=== PATIENT | male | born 1940 | race African-American/Black ===

== ENCOUNTER 2023-08-13 15:02 | Outpatient (AMB) | payer OTHER, SELFPAY ==
--- NOTE | 2023-08-13 15:29 | HO.NEPHOV_ITS ---
HPI HPI Comments History of Present Illness Details I had the delight of seeing Reynaldo , accompanied by his , in follow-up of his chronic kidney disease. He has history of proteinuria. He is diabetic and is on medications. He has hypertension and is on multiple medications including angiotensin receptor aleshia. He has history of MGUS. He denies any chest pain, shortness of breath, proximal nocturnal dyspnea, peripheral arterial symptoms. He does not take nonsteroidal anti-inflammatories on a regular basis. He has no history of prostate cancer. He keeps himself well hydrated and his blood pressure has been well controlled. His serum creatinine has been around 1.3. He has not had any blood work done recently. He feels well. [facility] Medical History (Updated 08/14/23 @ 05:02 by Issac Morgan MD) Type 2 diabetes mellitus Peripheral vascular disease Peripheral neuropathy Pain in toe Onychomycosis Monoclonal gammopathy of unknown significance Mixed hyperlipidemia Family History (Updated 08/13/23 @ 15:27 by Evette Maradiaga MA) Sister Hypertension Diabetes Cancer Brother Hypertension Stroke Social History (Updated 08/13/23 @ 15:27 by Evette Maradiaga MA) Alcohol intake: never Patient Tobacco Use Status: Never used Tobacco Vital Signs 08/13/23 15:34 Height 5 ft 6 in Weight 191 lb BMI 30.8 BP 130/60 Blood Pressure Location Lt brachial Position Sitting Pulse 55 Pulse Source Pulse Oximeter Pulse Oximetry (%) 97 Oxygen Delivery Method Room Air Physical Exam Vital Signs: Last Vital Signs Pulse 55 08/13/23 15:34 BP 130/60 08/13/23 15:34 Pulse Ox 97 08/13/23 15:34 Oxygen Delivery Method Room Air 08/13/23 15:34 BMI result Body Mass Index 30.8 Const General: comfortable and no acute distress Orientation/consciousness: patient oriented x3 HEENT Head: Yes normocephalic Mouth: Normal oral and palatal mucosa present Eyes EOM: EOMs intact bilaterally Neck Neck: Yes supple Resp Auscultation: clear to auscultation bilaterally Cardio Jugular venous distension: no JVD Rate: regular rate GI Palpation (GI): Soft to palpation Auscultation: normal bowel sounds General: Yes no CVA tenderness Back/Spine/Pelvis Back: no CVA tenderness Skin General skin exam: no rashes or lesions noted Neuro General: patient oriented x3 and moves all extremities Extrem General: Yes no pedal edema Assessment & Plan Assessment & Plan (1) CKD (chronic kidney disease) stage 3, GFR 30-59 ml/min: Code(s): N18.30 - Chronic kidney disease, stage 3 unspecified Qualifiers: Chronic kidney disease stage 3 subtype: stage 3a (GFR 45-59) Qualified Code(s): N18.31 - Chronic kidney disease, stage 3a (2) Hypertension: Code(s): I10 - Essential (primary) hypertension Qualifiers: Hypertension type: renovascular hypertension Qualified Code(s): I15.0 - Renovascular hypertension Plan Reynaldo has longstanding diabetes and hypertension. He is on multiple antihypertensive medications. He has renovascular disease. Doppler evaluation done in the past showed borderline elevated resistive indices and velocities in the right possibly due to mild stenosis and or small caliber blood vessels. I shall do a Doppler of his renal arteries with time for follow-up. He is on lipid-lowering medications. His renal functions have been stable. He has no heart failure. His serum potassium is normal. He avoids excessive nonsteroidal anti-inflammatories and maintain good hydration along with a low-sodium diet. 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 He may be a good candidate for SGLT2 inhibitor. I did not make any medication changes today. Follow-up lab work ordered. All questions and concerns were addressed. Follow-up appointment given. Orders: Orders Creatinine 08/13/23 I10 - Essential (primary) hypertension, N18.30 - Chronic kidney disease, stage 3 unspecified Electrolytes 08/13/23 I10 - Essential (primary) hypertension, N18.30 - Chronic kidney disease, stage 3 unspecified Protein Creatinine Ratio, Ur 08/13/23 I10 - Essential (primary) hypertension, N18.30 - Chronic kidney disease, stage 3 unspecified Blood Urea Nitrogen 08/13/23 I10 - Essential (primary) hypertension, N18.30 - Chronic kidney disease, stage 3 unspecified Coding Level of Care Code Est Pt Level 4 (76760) Diagnoses Stage 3a chronic kidney disease N18.31 Chronic kidney disease stage 3 subtype: stage 3a (GFR 45-59) Renovascular hypertension I15.0 Hypertension type: renovascular hypertension Results Reviewed Nephrology Results: No Data to Display
[2023-08-13 15:34] VITALS: BP 130/60; PULSE 55; O2SAT 97; BMI 30.8
== END 2023-08-13 15:58 | disposition home or self-care (01) ==
PROVIDERS: PCP Internal Medicine; Visit Provider Internal Medicine Nephrology
DX: N18.31 Chronic kidney disease, stage 3a (principal); I15.0 Renovascular hypertension
CPT/HCPCS: 99214

== ENCOUNTER → 2023-08-13 15:02 | Outpatient (BNVA) | payer OTHER, MEDICARE, SELFPAY | PROVIDERS: PCP Internal Medicine; Visit Provider Internal Medicine Nephrology ==

== ENCOUNTER 2023-11-11 13:08 | Outpatient (REF) | payer OTHER, SELFPAY ==
[2023-11-11 17:15] LABS: Anion Gap 11 (12-20); Blood Urea Nitrogen 14 mg/dL (9-16); Carbon Dioxide 26 mmol/L (22-29); Chloride 104 mmol/L (96-108); Estimated Glomerular Filt Rate > 60; Sodium 137 mmol/L (135-145)
[2023-11-11 17:45] LABS: Creatinine Urine 18.29 mg/dL; Total Protein Urine Random < 7 mg/dL (<12)
== END 2023-11-11 13:09 | disposition home or self-care (01) ==
LOC: HO.HKASLDS 13:08
PROVIDERS: Visit Provider Internal Medicine Nephrology
DX: I12.9 Hypertensive chronic kidney disease with stage 1 through stage 4 chronic kidney disease, or unspecified chronic kidney disease (principal); N18.30 Chronic kidney disease, stage 3 unspecified
CPT/HCPCS: 36415; 80051; 82565; 82570; 84156; 84520

== ENCOUNTER 2024-02-16 09:31 | Outpatient (AMB) | payer OTHER, SELFPAY ==
[2024-02-16 09:35] VITALS: BP 132/52; PULSE 59; O2SAT 96; BMI 30.8
--- NOTE | 2024-02-16 09:35 | HO.NEPHOV ---
Vital Signs 02/16/24 09:35 Height 5 ft 6 in Weight 191 lb BMI 30.8 BP 132/52 L Blood Pressure Location Lt brachial Position Sitting Pulse 59 Pulse Source Pulse Oximeter Pulse Oximetry (%) 96 Oxygen Delivery Method Room Air Intake Visit Reasons: 6M follow up/ Conf Bottom Cager Required: No Accompanied by: Self / Same As Patient Allergies Equisetum arvense (horsetail) Allergy (Verified 02/16/24 09:38) Unknown HPI Comments Details: I had the delight of seeing Reynaldo in follow-up of his chronic kidney disease. He has history of proteinuria. He is diabetic and is on medications. He has hypertension and is on multiple medications including angiotensin receptor aleshia. He has history of MGUS. He denies any chest pain, shortness of breath, proximal nocturnal dyspnea, peripheral arterial symptoms. He does not take nonsteroidal anti-inflammatories on a regular basis. His last HbA1c was 7.4. He keeps himself well hydrated and his blood pressure has been well controlled. His serum creatinine has been around 1.3. He feels well. [facility]PLAC[facility] BY [facility] Medical History (Updated 08/14/23 @ 05:02 by Issac Morgan MD) Type 2 diabetes mellitus Peripheral vascular disease Peripheral neuropathy Pain in toe Onychomycosis Monoclonal gammopathy of unknown significance Mixed hyperlipidemia Family History Sister Hypertension Diabetes Cancer Brother Hypertension Stroke Social History Alcohol intake: never Patient Tobacco Use Status: Never used Tobacco Physical Exam Vital Signs: Last Vital Signs Pulse 59 02/16/24 09:35 BP 132/52 L 02/16/24 09:35 Pulse Ox 96 02/16/24 09:35 Oxygen Delivery Method Room Air 02/16/24 09:35 BMI result Body Mass Index 30.8 Const General: comfortable and no acute distress Orientation/consciousness: patient oriented x3 HEENT Head: Yes normocephalic Mouth: Normal oral and palatal mucosa present Eyes EOM: EOMs intact bilaterally Neck Neck: Yes supple Resp Auscultation: clear to auscultation bilaterally Cardio Jugular venous distension: no JVD Rate: regular rate GI Palpation (GI): Soft to palpation Auscultation: normal bowel sounds General: Yes no CVA tenderness Back/Spine/Pelvis Back: no CVA tenderness Skin General skin exam: no rashes or lesions noted Neuro General: patient oriented x3 and moves all extremities Extrem General: Yes no pedal edema Results Reviewed Nephrology Results: Sodium 137 mmol/L (135-145) 11/11/23 Potassium 4.0 mmol/L (3.3-5.1) 11/11/23 Chloride 104 mmol/L (96-108) 11/11/23 Carbon Dioxide 26 mmol/L (22-29) 11/11/23 BUN 14 mg/dL (9-16) 11/11/23 Creatinine 1.02 mg/dL (0.5-1.4) 11/11/23 Urine Creatinine 18.29 mg/dL 11/11/23 Protein/Creatinin Ratio TNP 11/11/23 Assessment & Plan Assessment & Plan (1) CKD (chronic kidney disease) stage 3, GFR 30-59 ml/min: Code(s): N18.30 - Chronic kidney disease, stage 3 unspecified Category: Medical Qualifiers: Chronic kidney disease stage 3 subtype: stage 3a (GFR 45-59) Qualified Code(s): N18.31 - Chronic kidney disease, stage 3a (2) Hypertension: Code(s): I10 - Essential (primary) hypertension Category: Medical Qualifiers: Hypertension type: renovascular hypertension Qualified Code(s): I15.0 - Renovascular hypertension Plan Reynaldo has longstanding diabetes and hypertension. He is on multiple antihypertensive medications. He has renovascular disease. Doppler evaluation done in the past showed borderline elevated resistive indices and velocities in the right possibly due to mild stenosis and or small caliber blood vessels. I shall do a Doppler of his renal arteries with time for follow-up. He is on lipid-lowering medications. His renal functions have been stable. He has no heart failure. His serum potassium is normal. He avoids excessive nonsteroidal anti-inflammatories and maintain good hydration along with a low-sodium diet. 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 He may be a good candidate for SGLT2 inhibitor. I did not make any medication changes today. Follow-up lab work ordered. All questions and concerns were addressed. Follow-up appointment given. Orders: Orders Creatinine Today I15.0 - Renovascular hypertension, N18.31 - Chronic kidney disease, stage 3a Electrolytes Today I15.0 - Renovascular hypertension, N18.31 - Chronic kidney disease, stage 3a Blood Urea Nitrogen Today I15.0 - Renovascular hypertension, N18.31 - Chronic kidney disease, stage 3a Coding Level of Care Code Est Pt Level 4 (96778) Diagnoses Stage 3a chronic kidney disease N18.31 Chronic kidney disease stage 3 subtype: stage 3a (GFR 45-59) Renovascular hypertension I15.0 Hypertension type: renovascular hypertension
== END 2024-02-16 09:57 | disposition home or self-care (01) ==
PROVIDERS: PCP Internal Medicine; Visit Provider Internal Medicine Nephrology
DX: N18.31 Chronic kidney disease, stage 3a (principal); I15.0 Renovascular hypertension
CPT/HCPCS: 99214

== ENCOUNTER → 2024-02-16 09:31 | Outpatient (BNVA) | payer OTHER, MEDICARE, SELFPAY | PROVIDERS: PCP Internal Medicine; Visit Provider Internal Medicine Nephrology ==

== ENCOUNTER 2024-09-06 09:53 | Outpatient (AMB) | payer OTHER, MEDICARE, SELFPAY ==
--- NOTE | 2024-09-06 10:31 | HO.NEPHOV ---
Vital Signs 09/06/24 10:33 Height 5 ft 6 in Weight 178 lb 6 oz BMI 28.8 BP 110/60 Blood Pressure Location Lt brachial Position Sitting Pulse 54 Pulse Source Pulse Oximeter Pulse Oximetry (%) 98 Oxygen Delivery Method Room Air Intake Visit Reasons: 6 mon follow up-Conf Technical Sales Representatives Required: No Accompanied by: Spouse Allergies Equjerardotjulian fischer (horsetail) Allergy (Verified 09/06/24 10:33) Unknown HPI Comments Details: Reynaldo was seen in follow-up of his chronic kidney disease. He has history of proteinuria. He is diabetic and is on medications. He has hypertension and is on multiple medications including angiotensin receptor aleshia. He has history of MGUS. He denies any chest pain, shortness of breath, proximal nocturnal dyspnea, peripheral arterial symptoms. He does not take nonsteroidal anti-inflammatories on a regular basis. His last HbA1c was 7.4. He keeps himself well hydrated and his blood pressure has been well controlled. His serum creatinine has been around 1.3. [facility] Medical History (Updated 08/14/23 @ 05:02 by Issac Morgan MD) Type 2 diabetes mellitus Peripheral vascular disease Peripheral neuropathy Pain in toe Onychomycosis Monoclonal gammopathy of unknown significance Mixed hyperlipidemia Family History Sister Hypertension Diabetes Cancer Brother Hypertension Stroke Social History Alcohol intake: never Patient Tobacco Use Status: Never used Tobacco Review of Systems Const All systems reviewed & are unremarkable except as noted in HPI and below Physical Exam Vital Signs: Last Vital Signs Pulse 54 09/06/24 10:33 BP 110/60 09/06/24 10:33 Pulse Ox 98 09/06/24 10:33 Oxygen Delivery Method Room Air 09/06/24 10:33 BMI result Body Mass Index 28.8 Const General: comfortable and no acute distress Orientation/consciousness: patient oriented x3 HEENT Head: Yes normocephalic Mouth: Normal oral and palatal mucosa present Eyes EOM: EOMs intact bilaterally Neck Neck: Yes supple Resp Auscultation: clear to auscultation bilaterally Cardio Jugular venous distension: no JVD Rate: regular rate GI Palpation (GI): Soft to palpation Auscultation: normal bowel sounds General: Yes no CVA tenderness Back/Spine/Pelvis Back: no CVA tenderness Skin General skin exam: no rashes or lesions noted Neuro General: patient oriented x3 and moves all extremities Extrem General: Yes no pedal edema Assessment & Plan Assessment & Plan (1) CKD (chronic kidney disease) stage 3, GFR 30-59 ml/min: Code(s): N18.30 - Chronic kidney disease, stage 3 unspecified Category: Medical Qualifiers: Chronic kidney disease stage 3 subtype: stage 3a (GFR 45-59) Qualified Code(s): N18.31 - Chronic kidney disease, stage 3a (2) Hypertension: Code(s): I10 - Essential (primary) hypertension Category: Medical Qualifiers: Hypertension type: renovascular hypertension Qualified Code(s): I15.0 - Renovascular hypertension Plan Reynaldo has longstanding diabetes and hypertension. He is on multiple antihypertensive medications. He has renovascular disease. Doppler evaluation done in the past showed borderline elevated resistive indices and velocities in the right possibly due to mild stenosis and or small caliber blood vessels. I shall do a Doppler of his renal arteries with time for follow-up. He is on lipid-lowering medications. His renal functions have been stable. He has no heart failure. His serum potassium is normal. He avoids excessive nonsteroidal anti-inflammatories and maintain good hydration along with a low-sodium diet. 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 He may be a good candidate for SGLT2 inhibitor. I did not make any medication changes today. Follow-up lab work ordered. All questions and concerns were addressed. Follow-up appointment given. Orders: Orders Blood Urea Nitrogen 6 Months I15.0 - Renovascular hypertension, N18.31 - Chronic kidney disease, stage 3a Creatinine 6 Months I15.0 - Renovascular hypertension, N18.31 - Chronic kidney disease, stage 3a Electrolytes 6 Months I15.0 - Renovascular hypertension, N18.31 - Chronic kidney disease, stage 3a Coding Level of Care Code Est Pt Level 4 (10435) Diagnoses Stage 3a chronic kidney disease N18.31 Chronic kidney disease stage 3 subtype: stage 3a (GFR 45-59) Renovascular hypertension I15.0 Hypertension type: renovascular hypertension
[2024-09-06 10:33] VITALS: BP 110/60; PULSE 54; O2SAT 98; BMI 28.8
--- OUTSIDE RECORDS SUMMARY | 2024-09-06 10:35 | XMS_ITS | Clinical Summary ---
Author Organization [facility] Address [address] [place] [address] Care Team Providers Care Manager User Interface Name Role Phone Benito Graf MD Primary Care Provider + [phone] Allergies No known active allergies Medications Medication Sig Dispensed Refills Start Date End Date Status albuterol (PROVENTIL) (2.5 MG/3ML) 0.083% nebulizer solution INHALE 1 AMP BY NEBULIZATION ROUTE 4 TIMES EVERY DAY 0 07/28/2022 Active amLODIPine (NORVASC) tablet 10 mg Take 1 tablet (10 mg total) by mouth. 0 Active aspirin 81 MG EC tablet Take 1 tablet (81 mg total) by mouth. 0 Active cetirizine (ZyrTEC) 10 MG tablet Take 1 tablet (10 mg total) by mouth. 0 Active hydroCHLOROthiazide (HYDRODIURIL) tablet 25 mg Take 1 tablet (25 mg total) by mouth. 0 Active losartan (COZAAR) tablet 50 mg Take 1 tablet (50 mg total) by mouth daily. 0 08/14/2022 Active montelukast (SINGULAIR) 10 MG tablet Take 1 tablet (10 mg total) by mouth every evening. 0 08/11/2022 Active metFORMIN (GLUCOPHAGE) tablet 500 mg Take 1 tablet (500 mg total) by mouth. 0 09/21/2021 Active traZODone (DESYREL) 100 MG tablet Take 1 tablet (100 mg total) by mouth. 0 Active valACYclovir (VALTREX) 500 MG tablet Take 1 tablet (500 mg total) by mouth. 0 Active Active Problems Problem Noted Date Diagnosed Date MGUS (monoclonal gammopathy of unknown significa nce) 05/21/2017 Type 2 diabetes mellitus wit hout complication, without long-term current use of insulin 05/21/2017 Essential hypertension 05/21/2017 Mixed hyperlipidemia 05/21/2017 Family History Medical History Relation Name Comments Diabetes Brother Stroke Father Cancer Sister breast Relation Name Status Comments Brother Father Sister Social History Tobacco Use Types Packs/Day Years Used Date Smoking Tobacco: Never Smokeless Tobacco: Never Tobacco Cessation:Counseling Given: Not Answered Alcohol Use Standard Drinks/Week Comments No 0 (1 standard drink = 0.6 oz pur e alcohol) Sex and Gender Information Value Date Recorded Sex Assigned at Not on file Gender Identity Not on file Sexual Orientation Not on file Job Start Date Occupation Industry Not on file Not on file Not on file Last Filed Vital Signs Vital Sign Reading Time Taken Comments Blood Pressure 148/51 09/16/2023 2:29 PM EST Pulse 56 09/16/2023 2:29 PM EST Temperature 36.5 ??C (97.7 ??F) 09/16/2023 2:29 PM ES T Respiratory Rate - - Oxygen Saturation 99% 09/16/2023 2:29 PM EST Inhaled Oxygen Concentration - - Weight 87.2 kg (192 lb 3.2 oz) 09/16/2023 2:29 P M EST Height 165.1 cm (5' 5 ) 09/16/2023 2:29 PM EST Body Mass Index 31.98 09/16/2023 2:29 PM EST Plan of Treatment Health Maintenance Due Date Last Done Comments COVID-19 Vaccine (#1) 12/05/1945 Pneumococcal Vaccine (1 of 2 - PCV) 1948 Depression Screening 1954 Preventative Health Evaluation 1960 DTap / Tdap / Td (1 - Tdap) 1961 Shingrix-Zoster Vaccine (1 of 2) 1961 Fall Risk Assessment 12/05/2007 RSV Adult > 60+ Yrs or Pregn ant (1 - 1-dose 75+ series) 2017 Influenza Vaccine (#1) 2024 05/05/2016 Hepatitis B Vaccines Aged Out No long er eligible based on patient's age to complete this topic RSV Ped < 20 months Aged Out No longe r eligible based on patient's age to complete this topic Care Teams Manager User Interface Relationship Specialty Start Date End Date Benito Graf MD PCP - General Internal Medicine 05/21/17
--- OUTSIDE RECORDS SUMMARY | 2024-09-06 10:35 | XMS_ITS | Clinical Summary ---
Author Organization [address] [facility] Address [address] [place] [address] Phone Care Team Providers Care Commercial Pilot Name Role Phone Benito Graf MD Primary Care Provider + [phone] Allergies No known active allergies Medications Medication Sig Dispensed Refills Start Date End Date Status albuterol 2.5 mg /3 mL (0.083 %) nebulizer solution INHALE 1 AMP BY NEBULIZATION ROUTE 4 TIMES EVERY DAY 07/28/2022 Active amLODIPine (NORVASC) 10 mg tablet Take 1 tablet (10 mg total) by mouth. Active aspirin 81 mg EC tablet Take 1 tablet (81 mg total) by mouth. Active cetirizine (ZyrTEC) 10 mg tablet Take 1 tablet (10 mg total) by mouth. Active hydroCHLOROthiazide (HYDRODIURIL) 25 mg tablet Take 1 tablet (25 mg total) by mouth. Active losartan (COZAAR) 50 mg tablet Take 1 tablet (50 mg total) by mouth daily. 08/14/2022 Active metFORMIN (GLUCOPHAGE) 500 mg tablet Take 1 tablet (500 mg total) by mouth. 09/21/2021 Active montelukast (SINGULAIR) 10 mg tablet Take 1 tablet (10 mg total) by mouth every evening. 08/11/2022 Active traZODone (DESYREL) 100 mg tablet Take 1 tablet (100 mg total) by mouth. Active valACYclovir (VALTREX) 500 mg tablet Take 1 tablet (500 mg total) by mouth. Active MAGNESIUM OXIDE ORAL Take 420 mg by mouth daily. Active CHOLECALCIFEROL, VITAMIN D3, ORAL Take by mouth. Acti ve atenoloL (TENORMIN) 50 mg tablet Take 50 mg by mouth daily. Active latanoprost (XALATAN) 0.005 % ophthalmic solution 1 Drop at bedtime. Active pravastatin (PRAVACHOL) 80 mg tablet Take 80 mg by mouth daily. Active tamsulosin (FLOMAX) 0.4 mg 24 hr capsule Take 0.4 mg by mouth daily. Take 30 mins after same meal every day. Active aspirin ([place]) 81 mg capsule Take by mouth. Active albuterol 2.5 mg /3 mL (0.083 %) nebulizer solution Inhale into the lungs. - Inhalation Active Active Problems Problem Noted Date Diagnosed Date Lumbar stenosis 08/23/2021 Overview (05/20/2024): Last Assessment & Plan: Patient has history of low back pain, difficulty walking distances due to subjective hip weakness; however he had acute severe pain down the right lateral leg starting 07/11/2021, has been doing physical therapy, with time notes the severe right leg pain is improving. He still has some underlying issues with his walking, hip issues. He states prior to this acute flareup of right leg pain, he was doing well enough that he would not consider any surgical interventions for his symptoms. Since he is seeing improvement with time and PT, he will continue physical therapy and call me in 1 to 2 months with an update. If he has persistent or worsening symptoms, I asked that he follow-up in the office. Its not completely clear if his walking issue is related to hip arthritis or lumbar stenosis, his lumbar spine MRI 07/29/2021 at [facility] shows moderate L4-5 stenosis, similar to a prior exam from 11/14/2020, overall mild degenerative changes in the lumbar spine at other levels. We discussed the typical symptoms for lumbar stenosis, including needing to take breaks when walking, worsening of back and leg symptoms with walking; leaning forward on a shopping cart at the grocery store or walking hunched forward for improvement in symptoms while walking. We discussed potential for L4-5 decompression surgery, risks and benefits, postop expectation if he notes these types of symptoms that are worsening with time. He does not wish to try any cortisone injections. We discussed conservative treatment options other than PT as well, we reviewed his MRI lumbar spine on the computer in detail, total time spent 45 minutes. MGUS (monoclonal gammopathy of unknown significa nce) 05/21/2017 Type 2 diabetes mellitus wit hout complication, without long-term current use of insulin 05/21/2017 Mixed hyperlipidemia 05/21/2017 Essential hypertension 05/21/2017 Encounters Date Type Department Care Team Description 07/06/2024 11:00 AM EST Ancillary Procedure [facility] [address] [place] [id number] Heart murmur from Last 3 Months Medical History Medical History Date Comments Hypertension DX:Hypertension GERD (gastroesophageal reflux disease) DX:GERD (gastroesophageal reflux disease) Diabetes mellitus ([facility]/HCC) DX:D iabetes mellitus ([facility]) Family History Medical History Relation Name Comments Diabetes Brother Stroke Father Cancer Sister breast Relation Name Status Comments Brother Father Sister Social History Tobacco Use Types Packs/Day Years Used Date Smoking Tobacco: Never Smokeless Tobacco: Never Alcohol Use Standard Drinks/Week Comments No 0 (1 standard drink = 0.6 oz pur e alcohol) Sex and Gender Information Value Date Recorded Sex Assigned at Not on file Gender Identity Not on file Sexual Orientation Not on file Job Start Date Occupation Industry Not on file Not on file Not on file Obstetrics History Last Filed Vital Signs Vital Sign Reading Time Taken Comments Blood Pressure 149/71 07/06/2024 11:25 AM EST Pulse 56 09/16/2023 2:29 PM EST Temperature - - Respiratory Rate - - Oxygen Saturation - - Inhaled Oxygen Concentration - - Weight 83.9 kg (185 lb) 07/06/2024 11:25 AM EST Height 167.6 cm (5' 6 ) 07/06/2024 11:25 AM EST Body Mass Index 29.86 07/06/2024 11:25 AM EST Plan of Treatment Upcoming Encounters Date Type Department Care Team (Late st Contact Info) Description 09/16/2024 2:45 PM EST Office Visit [facility] Hematology Oncology [address] [place] [address] Ava Sen MD [address] [place] [address] Health Maintenance Due Date Last Done Comments Diabetes: Annual GFR (Glomerular Filtration Rate) 1942 Diabetes: Annual Foot Exam 1952 Diabetes: Annual Retina Eye Exam 1952 RSV Immunization Patients 60+ Years Old (1 - 1-dose 75+ series) 2017 Zoster Vaccines (2 of 2) 01/28/2019 019, 05/03/2015, 01/13/2013 Cholesterol Screening (Lipid Panel) 07/01/2022 Depression Screening 07/01/2022 Falls Risk Assessment 07/01/2022 Medicare Annual Wellness Visit 07/01/2022 Social Influencers of Health Screening 07/01/2022 Diabetes: Annual Urine Albumin-Creatinine Ratio (uACR) 07/31/2022 Diabetes: Blood Sugar Control Test (HGBA1C) 07/31/2022 10/30/2021 Hypertension/CHF/CAD Annual BMP Blood Test 07/31/2022 DTaP,Tdap,and Td Vaccines (2 - Tdap) 08/05/2023 08/05/2013 COVID-19 Vaccine ( - season) 2024 07/11/2021, 10/15/2020, 09/17/2020 Pneumococcal Vaccine: 65+ Years Completed 04/13/2017, 06/03/2015 Influenza Vaccine Completed 04/27/2024, , 06/13/2023, Additional history exists HIB Vaccines Aged Out No longer eligi ble based on patient's age to complete this topic HPV Vaccines Aged Out No longer eligi ble based on patient's age to complete this topic Hepatitis A Vaccines Aged Out No long er eligible based on patient's age to complete this topic Hepatitis B Vaccines Aged Out No long er eligible based on patient's age to complete this topic IPV Vaccines Aged Out No longer eligi ble based on patient's age to complete this topic MMR Vaccines Aged Out No longer eligi ble based on patient's age to complete this topic Meningococcal ACWY Vaccine Aged Out N o longer eligible based on patient's age to complete this topic RSV Immunization Patients Under 20 months Aged Out No longer eligible based on patient's age to complete this topic Varicella Vaccines Aged Out No longer eligible based on patient's age to complete this topic Procedures Procedure Name Priority Date/Time Associated Diagnosis Comments TRANSTHORACIC ECHOCARDIOGRAM (TTE) COMPLETE Routine 07/06/2024 11:26 AM EST Heart murmur from Last 3 Months Results * (ABNORMAL) TRANSTHORACIC ECHOCARDIOGRAM (TTE) COMPLETE (07/06/2024 11:26 AM EST) Left Atrium Minor Conway 5.0 cm CV PACS Left Atrium Major Conway 5.8 cm CV PACS LA Area Sys (A2C) 17 cm2 CV PACS LA Area Sys (A4C) 19 cm2 CV PACS LA Volume (BP) 50 mL CV PACS RA Area 13.5 cm2 CV PACS RA 2D Volume 31 mL CV PACS AV Regurgitation PHT 408 ms CV PACS AR Max Velocity 3.4 m/s CV PACS AV Peak Simon 2.7 m/s CV PACS AV Peak Gradient 29 mmHg CV PACS AV Mean Gradient 15 mmHg CV PACS Ao VTI 55.7 cm CV PACS AV Area Continuity Equation 1.3 cm2 CV PACS AV Area Peak Velocity 1.3 cm2 CV PACS Aortic Sinus Valsalva 3.5 cm CV PACS Ascending Aorta 3.7 cm CV PACS IVC Proximal 1.2 cm CV PACS IVSD 1.0 0.6 - 1.0 cm CV PACS LVIDD 5.0 4.2 - 5.8 cm CV PACS LVIDS 3.6 2.5 - 4.0 cm CV PACS LVOT Diameter 1.9 cm CV PACS LVOT Mean Grad 3 mmHg CV PACS LVOT Peak VTI 26.0 cm CV PACS LVOT Mean Simon 0.8 m/s CV PACS LVOT Peak Simon 1.2 m/s CV PACS LVOT Peak Gradient 6 mmHg CV PACS LVPWD 1.1(A) 0.6 - 1.0 cm CV PACS MV E' Tissue Velocity Lateral 6 cm/s CV PACS MV E' Tissue Velocity Septal 4 cm/s CV PACS LVOT Area 2.8 cm2 CV PACS LVOT Stroke Volume 74 mL CV PACS MV Deceleration Ellis 2.1 m/s2 CV PACS E Wave Deceleration Time 289(A) 119 - 242 ms CV PACS MV PHT 84 ms CV PACS MV Peak A Simon 1.30 m/s CV PACS MV Peak E Simon 1.10 m/s CV PACS MV Mean Gradient 2 mmHg CV PACS MV VTI 47.7 cm CV PACS Mitral Valve Max Velocity 1.4 m/s CV PACS MV Peak Gradient 8 mmHg CV PACS MV Area PHT 1.5 cm2 CV PACS MV Area Continuity Equation 1.5 cm2 CV PACS RV Diastolic Basal Dimension 3.6 2.5 - 4.1 cm CV PACS RV S' 13 cm/s CV PACS TAPSE 19 mm CV PACS TR Peak Velocity 1.90 m/s CV PACS TR Peak Gradient 15 mmHg CV PACS E/E' Ratio Septal 28 CV PACS E/E' Ratio Averaged 23 CV PACS Relative Wall Thickness ratio 0.43(A) 0.24 - 0.42 CV PACS LVOT:AV VTI Index 0.47 CV PACS FS 28 % CV PACS LV Mass 2D 191 96 - 200 g CV PACS MV VTI:LVOT VTI ratio 1.8 CV PACS LVOT flow 227 mL/s CV PACS AV Velocity Ratio 0.44 CV PACS E/A Ratio 0.8 0.8 - 2.0 CV PACS E/E' Ratio Lateral 18 CV PACS BSA 1.98 m2 CV PACS LA Volume Index (BP) 25 mL/m2 CV PACS LVIDD Index 2.59 cm/m2 CV PACS LVIDS Index 1.87 cm/m2 CV PACS LV Mass Index 2D 101 50 - 102 g/m2 CV PACS LVOT Stroke Index 0 mL/m2 CV PACS RA 2D Volume Index 16(A) 18 - 32 mL/m2 CV PACS OLGA Index (VTI) 0.69 cm2/m2 CV PACS OLGA Index (Pk Simon) 0.67 cm2/m2 CV PACS Ascending Aorta Index 1.92 cm/m2 CV PACS Right Ventricular Peak Systolic Pressure 17 mmHg CV PACS Est. RA Pressure 3 mmHg CV PACS LVOT Cardiac Output 0.0 L/min CV PACS LVOT Cardiac Index 2.2 L/min/m2 CV PACS RV Free Wall Peak S' 13 cm/s CV PACS RA Major Conway 5.1 cm CV PACS RA Major Conway Index 2.6 2.1 - 2.7 cm/m2 CV PACS AV Area 2D 1.3 cm2 CV PACS OLGA Index (2D) 0.67 cm2/m2 CV PACS Inferior Vena Cava Diameter At Expiration 1.2 cm CV PACS IVC Expiration Index 0.62 cm/m2 CV PACS AV Area Index 0.6 CV PACS Anatomical Region Laterality Modality Ultrasound Narrative 07/07/2024 12:15 PM EST ?Left ventricle cavity size is normal. Left ventricular systolic function is in the normal range with an ejection fraction of 55-60%. ?No regional LV wall motion abnormalities noted. ?Left ventricle wall thickness is normal. ?Right ventricle cavity is normal. Right ventricular systolic function is normal. ?Aortic valve demonstrates mild stenosis. ?See remainder of the report for additional findings. Left Ventricle Left ventricle cavity size is normal. Wall thickness is normal. Systolic function is normal with an ejection fraction of 55-60%. There are no regional LV wall motion abnormalities. Unable to assess diastolic function. Right Ventricle Right ventricle cavity appears normal. Systolic function is normal. Left Atrium Left atrium volume index is normal. Right Atrium Right atrium cavity is normal. IVC/SVC RA pressures is estimated to be 3 mmHg (IVC diameter <21 mm and decreases >50% during inspiration). Mitral Valve The leaflets are mildly thickened. There is trace regurgitation. There is no evidence of mitral valve stenosis. Tricuspid Valve The leaflets exhibit normal excursion. There is trace regurgitation. There is no evidence of tricuspid valve stenosis. The RVSP is estimated at 17 mmHg. Aortic Valve The aortic valve was not well visualized. The leaflets are calcified. There is mild regurgitation. There is mild stenosis. Pulmonic Valve The pulmonic valve was not well visualized. There is trace pulmonic valve regurgitation. Ascending Aorta The aorta appears normal in size. Pericardium Pericardium appears normal. There is no pericardial effusion. Study Details Overall the study quality was adequate. 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 Health Care Decision (hx) 05/21/2017 AD ROJAS DIRECTIVE Health Care Decision (hx) 05/21/2017 AD ROJAS DIRECTIVE Health Care Decision (hx) 05/21/2017 AD ROJAS DIRECTIVE Health Care Decision (hx) 05/21/2017 AD ROJAS DIRECTIVE Health Care Decision (hx) 05/21/2017 AD ROJAS DIRECTIVE Health Care Decision (hx) 05/21/2017 AD ROJAS DIRECTIVE Health Care Decision (hx) 05/21/2017 AD ROJAS DIRECTIVE Health Care Decision (hx) 05/21/2017 AD ROJAS DIRECTIVE Health Care Decision (hx) 05/21/2017 AD ROJAS DIRECTIVE Health Care Decision (hx) 05/21/2017 AD ROJAS DIRECTIVE Health Care Decision (hx) 05/21/2017 AD ROJAS DIRECTIVE Health Care Decision (hx) 05/21/2017 AD ROJAS DIRECTIVE Health Care Decision (hx) 05/21/2017 AD ROJAS DIRECTIVE Health Care Decision (hx) 05/21/2017 AD ROJAS DIRECTIVE Health Care Decision (hx) 05/21/2017 AD ROJAS DIRECTIVE Health Care Decision (hx) 05/21/2017 AD ROJAS DIRECTIVE Health Care Decision (hx) 05/21/2017 AD ROJAS DIRECTIVE Care Teams Commercial Pilot Relationship Specialty Start Date End Date Benito Graf MD [address] [place] [address] PCP - General Internal Medicine 07/06/24
--- OUTSIDE RECORDS SUMMARY | 2024-09-06 10:35 | XMS_ITS | Clinical Summary ---
Author Organization [facility] Address [address] [facility] [address] [place] [address] Phone Care Team Providers Care Cement Tile Maker Name Role Phone Benito Graf MD Primary Care Provider + [phone] Allergies Active Allergy Reactions Criticality Noted Date Comments Equisetum 09/26/2021 Medications albuterol (2.5 MG/3ML) 0.083% nebulizer solution INHALE 1 AMP BY NEBULIZATION ROUTE 4 TIMES EVERY DAY 2 Active losartan (COZAAR) 50 MG tablet Take 50 mg by mouth 1 (one) time each day 2 Active metFORMIN (GLUCOPHAGE) 500 MG tablet Take 1 tablet by mouth in the morning and 1 tablet in the evening. 2 Active hydroCHLOROthia zide 25 MG tablet Take 25 mg by mouth 1 (one) time each day Active atenolol (TENORMIN) 50 MG tablet Take 50 mg by mouth 1 (one) time each day Active amLODIPine (NORVASC) 10 MG tablet Take 10 mg by mouth 1 (one) time each day Active aspirin (ST [place]) 81 MG EC tablet Take 81 mg by mouth 1 (one) time each day Active pravastatin (PRAVACHOL) 80 MG tablet Take 80 mg by mouth 1 (one) time each day Active tamsulosin (FLOMAX) 0.4 MG 24 hr capsule Take 0.4 mg by mouth 1 (one) time each day Active cholecalciferol (VITAMIN D-3) 25 MCG (1000 UT) capsule Take 1,000 Units by mouth 1 (one) time each day Active cetirizine (ZyrTEC) 10 MG tablet Take 10 mg by mouth 1 (one) time each day Active Magnesium Oxide 420 MG tablet Take 1 tablet by mouth 1 (one) time each day Active latanoprost (XALATAN) 0.005 % ophthalmic solution 1 drop every night Active traZODone (DESYREL) 100 MG tablet Take 100 mg by mouth if needed for sleep Active valACYclovir (VALTREX) 500 MG tablet Take 500 mg by mouth if needed Active sildenafil (VIAGRA) 100 MG tablet Take 100 mg by mouth if needed for erectile dysfunction Active montelukast (SINGULAIR) 10 MG tablet Take 1 tablet by mouth in the morning. 3 Active Active Problems Problem Noted Date Diagnosed Date Chronic kidney disease 09/26/2021 Stage 3a chronic kidney disease 09/26/2021 Hypertension 09/26/2021 Essential hypertension 05/21/2017 Resolved Problems Problem Noted Date Diagnosed Date Resolved Date Mixed hyperlipidemia 05/21/2017 022 Monoclonal gammopathy of unc ertain significance 05/21/2017 09/26/2021 Paronychia 10/30/2016 09/26/2021 Pain in toe 09/25/2016 09/26/2021 Onychomycosis 06/20/2016 09/26/2021 Peripheral neuropathy 06/20/20162021 Peripheral vascular disease 06/20/2016 09/26/2021 Type 2 diabetes mellitus 06/20/2016 Immunizations Name Administration Dates Next Due Influenza, Quadrivalent, With Preservative 05/05 Family History Medical History Relation Comments Hypertension Brother Stroke Brother Cancer Sister Diabetes Sister Hypertension Sister Relation Status Comments Brother Father Mother Sister Social History Tobacco Use Types Packs/Day Years Used Date Smoking Tobacco: Never Smokeless Tobacco: Never Tobacco Cessation:Counseling Given: Not Answered Alcohol Use Standard Drinks/Week Comments Never 0 (1 standard drink = 0.6 oz pur e alcohol) Sex and Gender Information Value Date Recorded Sex Assigned at Not on file Legal Sex Male 9:14 AM EST Gender Identity Not on file Sexual Orientation Not on file Last Filed Vital Signs Vital Sign Reading Time Taken Comments Blood Pressure 130/70 08/14/2022 4:33 PM EST Pulse 63 08/14/2022 4:33 PM EST Temperature - - Respiratory Rate - - Oxygen Saturation - - Inhaled Oxygen Concentration - - Weight 88.9 kg (196 lb) 08/14/2022 4:33 PM EST Height - - Body Mass Index - - Plan of Treatment Health Maintenance Due Date Last Done Comments Diabetes: Hemoglobin A1C 06/04/2023 10/30/2021, 05/04 Diabetes: Pedal Pulse Checked 06/04/2023 Diabetes: Sensory Foot Exam 06/04/2023 Diabetes: Visual Foot Exam 06/04/2023 Influenza Vaccine (#1) 2024 , 06/03/2021, 05/03/2020, Additional history exists Diabetes: Ophthalmology Exam 05/25/2024, 10/22/2022, 04/23/2022 Pneumococcal Vaccine: 65+ Years Completed 04/13/2017, 06/03/2015 Hepatitis B Vaccine Aged Out No longe r eligible based on patient's age to complete this topic Procedures Procedure Name Priority Date/Time Associated Diagnosis Comments HEMOGLOBIN A1C Routine 10/30/2021 8:06 AM EDT Hypertension Stage 3a chronic kidney disease (HCC) from Last 3 Months or Most Recently Relevant to Health Maintenance Results * (ABNORMAL) Hemoglobin A1c (10/30/2021 8:06 AM EDT) Hemoglobin A1C 6.3(H) (4.0-5.6) % [facility] Comment: MONITORING: In known diabetic patients, hemoglobin A1c targets should be discussed with health care provider. DIAGNOSTIC USE: ??The [place] Diabetes Association (ADA) and the World Health Organization (WHO) recommend the use of HbA1c to diagnose diabetes using a threshold of 6.5%. Patients who have an HbA1c between 5.7% and 6.4% are considered at increased risk for developing diabetes in the future. CAUTION: Falsely low HbA1c results may be observed in patients with hemolytic anemia, homozygous forms of abnormal hemoglobin (e.g. SS, CC, SC), , recent blood loss or hemoglobin F greater than 7%. Fructosamine may be used as an alternate test in these cases. REFERENCE: ADA: Standards of Medical Care in Diabetes 2020, The Journal of Clinical and Applied Research and Education Volume 43, Supplement 1 Testing performed or reported by [facility], a Service of [facility], [address] [place], [place] [id number] Selena Turner MD, Tube And Rod Straightener [facility]# [id number] Blood (Blood, Venous) 10/30/2021 8:06 AM EDT 10/30/2021 8:07 AM EDT us Issac Morgan MD LAB BLOOD ORDERABLES Final Resul t [facility] [employer] from Last 3 Months or Most Recently Relevant to Health Maintenance Insurance [employer] Care Teams Cement Tile Maker Relationship Specialty Start Date End Date Benito Graf MD [address] [place], [place] [address] [address] PCP - General Internal Medicine 08/07/21
== END 2024-09-06 10:52 | disposition home or self-care (01) ==
PROVIDERS: PCP Internal Medicine; Visit Provider Internal Medicine Nephrology
DX: I12.9 Hypertensive chronic kidney disease with stage 1 through stage 4 chronic kidney disease, or unspecified chronic kidney disease (principal); E11.22 Type 2 diabetes mellitus with diabetic chronic kidney disease; N18.31 Chronic kidney disease, stage 3a
CPT/HCPCS: 99214

== ENCOUNTER 2024-09-06 09:53 | Outpatient (REF) | payer OTHER, MEDICARE, SELFPAY ==
[2024-09-06 18:26] LABS: Anion Gap 17 (12-20); Blood Urea Nitrogen 20 mg/dL (9-16); Carbon Dioxide 24 mmol/L (22-29); Chloride 101 mmol/L (96-108); Estimated Glomerular Filt Rate 44; Potassium 4.1 mmol/L (3.3-5.1); Sodium 138 mmol/L (135-145)
== END 2024-09-06 09:54 | disposition home or self-care (01) ==
LOC: HO.HKASLDS 09:53
PROVIDERS: PCP Internal Medicine; Visit Provider Internal Medicine Nephrology
DX: I15.0 Renovascular hypertension (principal); N18.31 Chronic kidney disease, stage 3a
CPT/HCPCS: 36415; 80051; 82565; 84520

== ENCOUNTER 2025-04-05 09:16 | Outpatient (REF) | payer OTHER, SELFPAY ==
--- OUTSIDE RECORDS SUMMARY | 2025-04-05 09:59 | XMS_ITS | Clinical Summary ---
Author Organization [facility] Address [address] [place] [address] Phone Care Team Providers Care Upper Cutter Out Name Role Phone Benito Graf MD Primary Care Provider + [phone] Allergies No known active allergies Medications amLODIPine (NORVASC) 10 mg tablet Take 1 tablet (10 mg total) by mouth. Active aspirin 81 mg EC tablet Take 1 tablet (81 mg total) by mouth. Active cetirizine (ZyrTEC) 10 mg tablet Take 1 tablet (10 mg total) by mouth. Active hydroCHLOROthia zide (HYDRODIURIL) 25 mg tablet Take 1 tablet (25 mg total) by mouth. Active losartan (COZAAR) 50 mg tablet Take 1 tablet (50 mg total) by mouth daily. 3 Active metFORMIN (GLUCOPHAGE) 500 mg tablet Take 1 tablet (500 mg total) by mouth. 2 Active traZODone (DESYREL) 100 mg tablet Take 1 tablet (100 mg total) by mouth. Active valACYclovir (VALTREX) 500 mg tablet Take 1 tablet (500 mg total) by mouth. Active MAGNESIUM OXIDE ORAL Take 420 mg by mouth daily. Active CHOLECALCIFEROL , VITAMIN D3, ORAL Take by mouth. Activ e atenoloL (TENORMIN) 50 mg tablet Take 50 [...] (Vazalore) 81 mg capsule Take by mouth. Acti ve Jardiance 10 mg tablet Take 1 tablet (10 mg total) by mouth 1 (one) time each day. for 30 days 5 Active montelukast (SINGULAIR) 10 mg tablet Take 1 tablet (10 mg total) by mouth at bedtime. 90 tablet 3 5 Active albuterol 2.5 mg /3 mL (0.083 %) nebulizer solution Take 3 mL (2.5 mg total) by nebulization 4 (four) times a day. 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, similar to [...] complication, without long-term current use of insulin ([facility] V24, [facility] V28) 05/21/2017 Mixed hyperlipidemia 05/21/2017 Essential hypertension 05/21/2017 Encounters Date Type Department Care Team Description 01/17/2025 1:15 PM EDT Office Visit Pulmonolgy - [address] [place] [address] Makayla Morocho MD Bronchiectasis without acute exacerbation ([facility] V24, [facility] V28) (Primary Dx); Obesity (BMI 30-39.9); Non-seasonal allergic rhinitis due to pollen from Last 3 Months Medical History Medical History Date Comments Hypertension DX:Hypertension GERD (gastroesophageal reflux disease) DX:GERD (gastroesophageal reflux disease) Diabetes mellitus ([facility] V 24, [facility] V28) DX:Diabetes mellitus ([facility]) Family History Medical History Relation Name Comments Diabetes Brother Stroke Father Cancer Sister breast Relation Name Status Comments Brother Father Sister Social History Tobacco Use Types Packs/Day Years Used Date Smoking Tobacco: Never Passive Smoke Exposure: Never Smokeless Tobacco: Never Tobacco Cessation:Counseling Given: Not Answered Alcohol Use Standard Drinks/Week Comments No 0 (1 standard drink = 0.6 oz pur e alcohol) Sex and Gender Information Value Date Recorded Sex Assigned at Male 11/17/2024 2:07 PM EDT Legal Sex Male 12:07 PM EST Gender Identity Male 11/17/2024 2:07 PM EDT Sexual Orientation Choose not to disclose 2024 2:07 PM EDT Obstetrics History Last Filed Vital Signs Vital Sign Reading Time Taken Comments Blood Pressure 110/52 01/17/2025 1:25 PM EDT Pulse 61 01/17/2025 1:25 PM EDT Temperature 36.1 C (97 F) 01/17/2025 1:25 PM EDT Respiratory Rate 17 01/17/2025 1:25 PM EDT Oxygen Saturation 98% 01/17/2025 1:25 PM EDT Inhaled Oxygen Concentration - - Weight 82.2 kg (181 lb 3.2 oz) 01/17/2025 1:25 P M EDT Height 167.6 cm (5' 6 ) 01/17/2025 1:25 PM EDT Body Mass Index 29.25 01/17/2025 1:25 PM EDT Plan of Treatment Upcoming Encounters Date Type Department Care Team (Late st Contact Info) Description 07/19/2025 9:30 AM EST Ancillary Procedure [facility] [address] [facility] [address] [place] [phone] 07/19/2025 11:15 AM EST Office Visit [facility] [address] [facility] [address] [place] [phone] Makayla Morocho MD [address] [place] [address] 09/18/2025 2:45 PM EST Office Visit [facility] Hematology Oncology [address] [place] [phone] Ava Sen MD [address] [place] [address] Health Maintenance Due Date Last Done Comments Diabetes: Annual Foot Exam 1950 Diabetes: Annual Retina Eye Exam 1950 Hepatitis A Vaccines (1 of 2 - Risk 2-dose series) 1961 RSV Immunization Adult Patients (1 - 1-dose 75+ series) 2017 Zoster Vaccines (2 of 2) 01/28/2019 019, 05/03/2015, 01/13/2013 Cholesterol Screening (Lipid Panel) 07/01/2022 Falls Risk Assessment 07/01/2022 Medicare Annual Wellness Visit 07/01/2022 Social Influencers of Health Screening 07/01/2022 Diabetes: Annual Urine Albumin-Creatinine Ratio (uACR) 07/31/2022 Diabetes: Blood Sugar Control Test (HGBA1C) 07/31/2022 10/30/2021 DTaP,Tdap,and Td Vaccines (2 - Tdap) 08/05/2023 08/05/2013 COVID-19 Vaccine ( season) 2024 07/11/2021, 10/15/2020, 09/17/2020 Depression Screening 08/03/2024 Influenza Vaccine (#1) 2025 , 04/27/2024, 06/30/2023, Additional history exists Diabetes: Annual GFR (Glomerular Filtration Rate) 09/16/2025 09/16/2024 Hypertension/CHF/CAD Annual BMP Blood Test 09/16/2025 09/16/2024 Pneumococcal Vaccine: 50+ Years Completed 04/13/2017, 06/03/2015 HIB Vaccines Aged Out No longer eligi [...] patient's age to complete this topic Meningococcal B Vaccine Aged Out No l onger eligible based on patient's age to complete this topic RSV Immunization Patients Under 20 months Aged Out No longer eligible based on patient's age to complete this topic Varicella Vaccines Aged Out No longer eligible based on patient's age to complete this topic Procedures Procedure Name Priority Date/Time Associated Diagnosis Comments COMPREHENSIVE METABOLIC PANEL Routine 09/16/2024 3:15 PM EST MGUS (monoclonal gammopathy of unknown significance) from Last 3 Months or Most Recently Relevant to Health Maintenance Results * (ABNORMAL) Comprehensive metabolic panel (09/16/2024 3:15 PM EST) Sodium 136 133 - 145 mmol/L LAB CHEMISTRY METHOD 09/16/2024 4:52 PM EST [facility] Potassium 3.7 3.5 - 5.5 mmol/L LAB CHEMISTRY METHOD 09/16/2024 4:52 PM EST [facility] Chloride 105 96 - 110 mmol/L LAB CHEMISTRY METHOD 09/16/2024 4:52 PM EST [facility] CO2 25 21 - 32 mmol/L LAB CHEMISTRY METHOD 09/16/2024 4:52 PM [facility] Anion Gap 6 3 - 11 LAB CHEMISTRY METHOD 09/16/2024 4:52 PM [facility] Glucose 254(H) 70 - 100 mg/dL LAB CHEMISTRY METHOD 09/16/2024 4:52 PM [facility] BUN 20 5 - 25 mg/dL LAB CHEMISTRY METHOD 09/16/2024 4:52 PM [facility] Creatinine 1.67(H) 0.70 - 1.30 mg/dL LAB CHEMISTRY METHOD 09/16/2024 4:52 PM [facility] eGFR 41(L) >=60 mL/min/1. 73m2 LAB CHEMISTRY METHOD 09/16/2024 4:52 PM [facility] Comment:Calculation based on the Chronic Kidney Disease Epidemiology Collaboration (CKD-EPI) equation refit without adjustment for race. BUN/Creatinine Ratio 12.0 LAB CHEMISTRY METHOD 09/16/2024 4:52 PM [facility] Calcium 9.6 8.5 - 10.5 mg/dL LAB CHEMISTRY METHOD 09/16/2024 4:52 PM [facility] AST (SGOT) 19 10 - 42 unit/L LAB CHEMISTRY METHOD 09/16/2024 4:52 PM [facility] ALT (SGPT) 23 10 - 60 unit/L LAB CHEMISTRY METHOD 09/16/2024 4:52 PM [facility] Alkaline Phosphatase 82 42 - 121 unit/L LAB CHEMISTRY METHOD 09/16/2024 4:52 PM [facility] Total Protein 6.9 6.0 - 8.0 g/dL LAB CHEMISTRY METHOD 09/16/2024 4:52 PM [facility] Albumin 3.7 3.2 - 5.0 g/dL LAB CHEMISTRY METHOD 09/16/2024 4:52 PM [facility] Total Bilirubin 0.4 0.0 - 1.4 mg/dL LAB CHEMISTRY METHOD 09/16/2024 4:52 PM EST [facility] Blood Venous blood specimen / Unknown Venipuncture / Unknown 09/16/2024 3:15 PM EST 09/16/2024 4:28 PM EST us Ava Sen MD LAB BLOOD ORDERABLE S Final Result [facility] [address] [place] [address], from Last 3 Months or Most Recently Relevant to Health Maintenance Insurance [employer] Advance Directives Documents on File Type Date Recorded Patient Emergency Medical Technician/Driver Expl anation Health Care Decision (hx) 05/21/2017 [...] (hx) 05/21/2017 AD ROJAS DIRECTIVE Care Teams Upper Cutter Out Relationship Specialty Start Date End Date Benito Graf MD [address] [place] [address] PCP - General Internal Medicine 07/06/24
--- OUTSIDE RECORDS SUMMARY | 2025-04-05 09:59 | XMS_ITS | Clinical Summary ---
Author Organization [facility] Address [address] [place] [address] Care Team Providers Care Surgical Rn Name Role Phone Benito Graf MD Primary Care Provider + [phone] Allergies No known active allergies Medications Medication [...] 56 09/16/2023 2:29 PM EST Temperature 36.5 C (97.7 F) 09/16/2023 2:29 PM EST Respiratory Rate - - Oxygen Saturation 99% [...] 1-dose 75+ series) 2017 Influenza Vaccine (#1) 2025 05/05/2016 Hepatitis B Vaccines Aged Out No long er eligible based on patient's age to complete this topic RSV Ped < 20 months Aged Out No longe r eligible based on patient's age to complete this topic Care Teams Surgical Rn Relationship Specialty Start Date End Date Benito Graf MD PCP - General Internal Medicine 05/21/17
--- OUTSIDE RECORDS SUMMARY | 2025-04-05 09:59 | XMS_ITS | Clinical Summary ---
Author Organization [facility] Address [address] [facility] [address] [place] [address] Phone Care Team Providers Care Tower Observer Name Role Phone Benito Graf MD Primary Care Provider + [phone] Allergies Active Allergy Reactions Criticality Noted Date [...] 09/26/2021 Type 2 diabetes mellitus 06/20/2016 Immunizations Immunization Administration Dates Next Due Influenza, Quadrivalent, With [...] Visual Foot Exam 06/04/2023 Influenza Vaccine (#1) 2025 , 06/13/2023, 04/03/2022, Additional history exists Diabetes: Ophthalmology Exam 08/17/2025, 12/21/2023, 05/25/2023 Pneumococcal Vaccine: 50+ Years Completed 04/13/2017, 06/03/2015 Hepatitis B Vaccine [...] AM EDT) Hemoglobin A1C 6.3(H) (4.0-5.6) % [facility] Comment: MONITORING: In known diabetic patients, hemoglobin A1c targets should be discussed with health care provider. DIAGNOSTIC USE: The [place] Diabetes Association (ADA) and the World Health [...] Supplement 1 Testing performed or reported by [facility], a Service of [facility], [address] [place] [address] Selena Turner MD, Manager Paper [facility]# [id number] Blood specimen (specimen) Venous blood / Unknown 10/30/2021 8:06 AM EDT 10/30/2021 8:07 AM EDT Issac Morgan MD LAB BLOOD ORDERABLES Final Resul t [facility] from Last 3 Months or Most Recently Relevant to Health Maintenance Insurance [employer] Care Teams Tower Observer Relationship Specialty Start Date End Date Benito Graf MD [address] [place] [address] PCP - General Internal Medicine 08/07/21
--- OUTSIDE RECORDS SUMMARY | 2025-04-05 09:59 | XMS_ITS ---
Continuity of Care Document (CCD) Created on: April 05, 2025 Reynaldo Nuñez External Reference #: [id number] : 1940 Sex: Male Author Organization [facility] [address] [facility] [address] [place] [address] Phone [phone] Care Team Providers Care Tortilla Maker Name Role Phone Benito Graf M.D. Care Team Information Recei trinity [phone] Problems Active Problems Provider Date Essential hypertension Aly Cameron M.D. O nset: 11/13/2022 Type 2 diabetes mellitus Aly Cameron M.D. Onset: 11/13/2022 Multinodular goiter Aly Cameron M.D. 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 Onset: 11/13/2022 Social History Type Date Description Comments Sex Male Sex Unknown Tobacco Use Start: Unknown Never Smoked Cigarettes ETOH Use Occasionally consumes alcoho l Allergies and adverse reactions Description No Known Drug Allergies Medications Active Medications SIG Qnty Indications Order ing Provider Date Metformin [id number] Tablets take 1 tablet by mouth twice a day Aly Cameron M.D. 11/13/2022 Albuterol Sulfate(2.5mg/3ML) 0.083% Nebulizer Inhale 1 Amp By Nebulization Route 4 Times Every Day Makayla Morocho MD Onetouch VerioStrips Twice A Day Benito Molina M.D. Losartan [id number] Tablets Take 1 Tablet By Mouth Every Day Benito Graf M.D. Montelukast Syeizm31jl Tablets Take 1 Tablet By Mouth Every Day In The Evening Makayla Morocho MD Hydrochlorothiazide2 5mg Tablets 1 by mouth every day 90tabs Aly Cameron M.D. Kmrudkdm45np Tablets 1 by mouth every day Aly Cameron M.D. Amlodipine Ozxwaowa15ig Tablets 1 by mouth every day Aly Cameron M.D. Pravastatin Ovmxeo56xo Tablets 1 by mouth every day Aly Cameron M.D. Tamsulosin HCL0.4mg Capsules 1 cap by mouth every night 90caps Aly Cameron M.D. Trazodone BYR852pl Tablets 1 tab by mouth at bedtime as needed Aly Cameron M.D. Valacyclovir VTK150nv Tablets take 1 tablet by mouth daily as needed 90tabs Aly Cameron M.D. Sildenafil Ladxzqk826wk Tablets take 1 tablet by mouth once daily if needed 6tabs Aly Cameron M.D. Vital Signs Date Vital Result Comment 11/17/2024 8:23am BP Systolic 130 mmHg BP Diastolic 80 mmHg Heart Rate 72 /min Height 65 inches 5'5 Weight 184.00 lb BMI (Body Mass Index) 30.6 kg/m2 Results Test Acquired Date Facility Test Result H/L Range N ote TSH Rfx on Abnormal to Free T4 11/17/2024 [facility] TSH Rfx on Abnormal to Free T4 1.980 uIU/mL 0.450-4.500 TSH Rfx on Abnormal to Free T4 11/16/2023 [facility] TSH Rfx on Abnormal to Free T4 1.920 uIU/mL 0.450-4.500 Medical Devices Description No Information Available Encounters Type Date Location Provider Dx Diagnosis Office Visit 11/17/2024 8:30a Main Office Aly Cameron M.D. E04.2 Nontoxic multinodular goiter Assessments Date Code Description Provider 11/17/2024 E04.2 Multinodular goiter Aly Liao M.D. Plan of Treatment Future Appointment(s):* 11/20/2025 8:30 am - Aly Cameron M.D. at Main Office 11/16/2023 - Aly Cameron M.D.* E04.2 Multinodular goiter* New Xrays:* Ultrasound Thyroid, Scheduled: 11/24/23 Functional Status Description No Information Available Mental Status Description No Information Available Referrals Refer to Dr Reason for Referral Status Appt Barry e Aly Cameron M.D. Created [address] [place] [address] Drive [address] [place] [address] [phone] Aly Cameron M.D. Created [address] [place] [address] Drive [address] [place] [address] [phone]
[2025-04-05 13:31] LABS: Anion Gap 12 (12-20); Blood Urea Nitrogen 19 mg/dL (9-16); Carbon Dioxide 26 mmol/L (22-29); Chloride 107 mmol/L (96-108); Estimated Glomerular Filt Rate 51; Potassium 4.1 mmol/L (3.3-5.1); Sodium 141 mmol/L (135-145)
== END 2025-04-05 09:17 | disposition home or self-care (01) ==
LOC: HO.HKASLDS 09:16
PROVIDERS: Visit Provider Internal Medicine Nephrology
DX: N18.31 Chronic kidney disease, stage 3a (principal); I15.0 Renovascular hypertension
CPT/HCPCS: 36415; 80051; 82565; 84520

== ENCOUNTER 2025-04-06 13:49 | Outpatient (AMB) | payer OTHER, MEDICARE, SELFPAY ==
--- NOTE | 2025-04-06 14:01 | HO.NEPHOV ---
Vital Signs 04/06/25 14:05 Height 5 ft 6 in Weight 182 lb 4 oz BMI 29.4 BP 120/60 Blood Pressure Location Lt brachial Position Sitting Pulse 63 Pulse Source Pulse Oximeter Pulse Oximetry (%) 98 Oxygen Delivery Method Room Air Intake Visit Reasons: Follow up 6mo-Conf Engineering Patternmaker Required: No Accompanied by: Spouse Allergies Equjerardotjulian fischer (horsetail) Allergy (Verified 04/06/25 14:04) Unknown HPI Comments Details: Reynaldo was seen in follow-up of his chronic kidney disease. He has history of proteinuria. He is diabetic and is on medications. He has hypertension and is on multiple medications including angiotensin receptor aleshia. He has history of MGUS. He denies any chest pain, shortness of breath, proximal nocturnal dyspnea, peripheral arterial symptoms. He does not take nonsteroidal anti-inflammatories on a regular basis. His last HbA1c has improved. He keeps himself well hydrated and his blood pressure has been well controlled. His serum creatinine has been around 1.3 PFSH Medical History (Updated 08/14/23 @ 05:02 by Issac Morgan MD) Type 2 diabetes mellitus Peripheral vascular disease Peripheral neuropathy Pain in toe Onychomycosis Monoclonal gammopathy of unknown significance Mixed hyperlipidemia Family History Sister Hypertension Diabetes Cancer Brother Hypertension Stroke Social History Alcohol intake: never Patient Tobacco Use Status: Never used Tobacco Review of Systems Const All systems reviewed & are unremarkable except as noted in HPI and below Physical Exam Vital Signs: Last Vital Signs Pulse 63 04/06/25 14:05 BP 120/60 04/06/25 14:05 Pulse Ox 98 04/06/25 14:05 Oxygen Delivery Method Room Air 04/06/25 14:05 BMI result Body Mass Index 29.4 Const General: comfortable and no acute distress Orientation/consciousness: patient oriented x3 HEENT Head: Yes normocephalic Mouth: Normal oral and palatal mucosa present Eyes EOM: EOMs intact bilaterally Neck Neck: Yes supple Resp Auscultation: clear to auscultation bilaterally Cardio Jugular venous distension: no JVD Rate: regular rate GI Palpation (GI): Soft to palpation Auscultation: normal bowel sounds General: Yes no CVA tenderness Back/Spine/Pelvis Back: no CVA tenderness Skin General skin exam: no rashes or lesions noted Neuro General: patient oriented x3 and moves all extremities Extrem General: Yes no pedal edema Results Reviewed Nephrology Results: Sodium, (135-145) 141 mmol/L 04/05/25 Potassium, (3.3-5.1) 4.1 mmol/L 04/05/25 Chloride, (96-108) 107 mmol/L 04/05/25 Carbon Dioxide, (22-29) 26 mmol/L 04/05/25 BUN, (9-16) 19 mg/dL H 04/05/25 Creatinine, (0.5-1.4) 1.33 mg/dL 04/05/25 Urine Creatinine 18.29 mg/dL 11/11/23 Protein/Creatinin Ratio TNP 11/11/23 Assessment & Plan Assessment & Plan (1) CKD (chronic kidney disease) stage 3, GFR 30-59 ml/min: Code(s): N18.30 - Chronic kidney disease, stage 3 unspecified Category: Medical Qualifiers: Chronic kidney disease stage 3 subtype: stage 3a (GFR 45-59) Qualified Code(s): N18.31 - Chronic kidney disease, stage 3a (2) Hypertension: Code(s): I10 - Essential (primary) hypertension Category: Medical Qualifiers: Hypertension type: renovascular hypertension Qualified Code(s): I15.0 - Renovascular hypertension Plan Reynaldo has longstanding diabetes and hypertension. He is on multiple antihypertensive medications. He has renovascular disease. Doppler evaluation done in the past showed borderline elevated resistive indices and velocities in the right possibly due to mild stenosis and or small caliber blood vessels. I shall do a Doppler of his renal arteries with time for follow-up. He is on lipid-lowering medications. His renal functions have been stable. He has no heart failure. His serum potassium is normal. He avoids excessive nonsteroidal anti-inflammatories and maintain good hydration along with a low-sodium diet. 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 He is on SGLT2 inhibitor. I did not make any medication changes today. Follow-up lab work ordered. All questions and concerns were addressed. Follow-up appointment given Orders: Orders Electrolytes 6 Months I15.0 - Renovascular hypertension, N18.31 - Chronic kidney disease, stage 3a Blood Urea Nitrogen 6 Months I15.0 - Renovascular hypertension, N18.31 - Chronic kidney disease, stage 3a Creatinine 6 Months I15.0 - Renovascular hypertension, N18.31 - Chronic kidney disease, stage 3a Protein Creatinine Ratio, Ur 6 Months I15.0 - Renovascular hypertension, N18.31 - Chronic kidney disease, stage 3a Coding Level of Care Code Est Pt Level 4 (43278) Diagnoses Stage 3a chronic kidney disease N18.31 Chronic kidney disease stage 3 subtype: stage 3a (GFR 45-59) Renovascular hypertension I15.0 Hypertension type: renovascular hypertension
[2025-04-06 14:05] VITALS: BP 120/60; PULSE 63; O2SAT 98; BMI 29.4
--- OUTSIDE RECORDS SUMMARY | 2025-04-06 15:06 | XMS_ITS | Clinical Summary ---
Author Organization [facility] Address [address] [facility] [address] [place] [address] Phone Care Team Providers Care Elderly Caregiver Name Role Phone Benito Graf MD Primary Care Provider + [phone] Allergies Active Allergy Reactions Criticality Noted Date [...] AM EDT) Hemoglobin A1C 6.3(H) (4.0-5.6) % [facility] Comment: MONITORING: In known diabetic patients, hemoglobin A1c targets should be discussed with health care provider. DIAGNOSTIC USE: The [place] Diabetes Association (ADA) and the World Health [...] Supplement 1 Testing performed or reported by [facility] [email or web address], a Service of [facility], [address] [place] [address] Selena Turner MD, Director Of Convention Services [facility]# [id number] Blood specimen (specimen) Venous blood / Unknown 10/30/2021 8:06 AM EDT 10/30/2021 8:07 AM EDT Issac Morgan MD LAB BLOOD ORDERABLES Final Resul t [facility] from Last 3 Months or Most Recently Relevant to Health Maintenance Insurance [employer] Care Teams Elderly Caregiver Relationship Specialty Start Date End Date Benito Graf MD [address] [place] [address] PCP - General Internal Medicine 08/07/21
--- OUTSIDE RECORDS SUMMARY | 2025-04-06 15:06 | XMS_ITS | Clinical Summary ---
Author Organization [facility] Address [address] [place] [address] Care Team Providers Care Physicist Acoustics Name Role Phone Benito Graf MD Primary Care Provider + [phone] Allergies No known active allergies Medications Medication [...] age to complete this topic Care Teams Physicist Acoustics Relationship Specialty Start Date End Date Benito Graf MD PCP - General Internal Medicine 05/21/17
--- OUTSIDE RECORDS SUMMARY | 2025-04-06 15:06 | XMS_ITS | Clinical Summary ---
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, similar to a [...] complication, without long-term current use of insulin ([facility] [place] V24, [facility] [place] V28[place] 05/21/2017 Mixed hyperlipidemia 05/21/2017 Essential hypertension 05/21/2017 Encounters Date Type Department Care Team Description 01/17/2025 1:15 PM EDT Office Visit Pulmonolgy - [address] [place] [address] Makayla Morocho MD Bronchiectasis without acute exacerbation ([facility] [place] V24, [facility] [place] V28[place] (Primary Dx); Obesity (BMI 30-39.9); Non-seasonal allergic rhinitis due to pollen from Last 3 Months Medical History Medical History Date Comments Hypertension DX:Hypertension GERD (gastroesophageal reflux disease) DX:GERD (gastroesophageal reflux disease) Diabetes mellitus ([facility] [place] V 24, [facility] [place] V28[place] DX:Diabetes mellitus ([facility]) Family History Medical History Relation Name Comments [...] Description 07/19/2025 9:30 AM EST Ancillary Procedure [facility] [address] [facility] [address] [place] [phone] 07/19/2025 11:15 AM EST Office Visit [facility] [address] [facility] [address] [place] [phone] Makayla Morocho MD [address] [place] [address] 09/18/2025 2:45 PM EST Office Visit [facility] Hematology Oncology [address] [place] [phone] Ava Sen MD [address] [place] [address] Health Maintenance Due Date Last [...] LAB CHEMISTRY METHOD 09/16/2024 4:52 PM EST [facility] Potassium 3.7 3.5 - 5.5 mmol/L LAB CHEMISTRY METHOD 09/16/2024 4:52 PM EST [facility] Chloride 105 96 - 110 mmol/L LAB CHEMISTRY METHOD 09/16/2024 4:52 PM EST [facility] CO2 25 21 - 32 mmol/L LAB CHEMISTRY METHOD 09/16/2024 4:52 PM [facility] Anion Gap 6 3 - 11 LAB CHEMISTRY METHOD 09/16/2024 4:52 PM [facility] Glucose 254(H) 70 - 100 mg/dL LAB CHEMISTRY METHOD 09/16/2024 4:52 PM [facility] BUN 20 5 - 25 mg/dL LAB CHEMISTRY METHOD 09/16/2024 4:52 PM [facility] Creatinine 1.67(H) 0.70 - 1.30 mg/dL LAB CHEMISTRY METHOD 09/16/2024 4:52 PM [facility] eGFR 41(L) >=60 mL/min/1. 73m2 LAB CHEMISTRY METHOD 09/16/2024 4:52 PM [facility] Comment:Calculation based on the Chronic Kidney Disease Epidemiology Collaboration (CKD-EPI) equation refit without adjustment for race. BUN/Creatinine Ratio 12.0 LAB CHEMISTRY METHOD 09/16/2024 4:52 PM [facility] Calcium 9.6 8.5 - 10.5 mg/dL LAB CHEMISTRY METHOD 09/16/2024 4:52 PM [facility] AST (SGOT) 19 10 - 42 unit/L LAB CHEMISTRY METHOD 09/16/2024 4:52 PM [facility] ALT (SGPT) 23 10 - 60 unit/L LAB CHEMISTRY METHOD 09/16/2024 4:52 PM [facility] Alkaline Phosphatase 82 42 - 121 unit/L LAB CHEMISTRY METHOD 09/16/2024 4:52 PM [facility] Total Protein 6.9 6.0 - 8.0 g/dL LAB CHEMISTRY METHOD 09/16/2024 4:52 PM [facility] Albumin 3.7 3.2 - 5.0 g/dL LAB CHEMISTRY METHOD 09/16/2024 4:52 PM [facility] Total Bilirubin 0.4 0.0 - 1.4 mg/dL LAB CHEMISTRY METHOD 09/16/2024 4:52 PM EST [facility] Blood Venous blood specimen / Unknown Venipuncture / Unknown 09/16/2024 3:15 PM EST 09/16/2024 4:28 PM EST us Ava Sen MD LAB BLOOD ORDERABLE S Final Result [facility] [address] [place] [address], from Last 3 Months or Most Recently Relevant to Health Maintenance Insurance [employer] Advance Directives Documents on File Type Date Recorded 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
--- OUTSIDE RECORDS SUMMARY | 2025-04-06 15:06 | XMS_ITS | Continuity of Care Document ---
Author Organization [facility] [address] [place] [address] Phone [phone] Care Team Providers Care Radar Mechanic Name Role Phone Benito Graf M.D. Care Team Information Recei trinity [phone] Problems Active Problems Provider Date Essential hypertension Aly Cameron M.D. O nset: 11/13/2022 Type 2 diabetes mellitus Aly Cameron M.D. Onset: 11/13/2022 Multinodular goiter Aly Cameron M.D. 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 Onset: 11/13/2022 Social History Type Date Description Comments Sex Male Sex Unknown Tobacco Use Start: Unknown Never Smoked Cigarettes ETOH Use Occasionally consumes alcoho l Allergies and adverse reactions Description No Known Drug Allergies Medications Active Medications SIG Qnty Indications Order ing Provider Date Metformin [id number] Tablets take 1 tablet by mouth twice a day Aly Cameron M.D. 11/13/2022 Albuterol Sulfate(2.5mg/3ML) 0.083% Nebulizer Inhale 1 Amp By Nebulization Route 4 Times Every Day Makayla Morocho MD Onetouch VerioStrips Twice A Day Benito Molina M.D. Losartan [id number] Tablets Take 1 Tablet By Mouth Every Day Benito rGaf M.D. Montelukast Yrvanu41ke Tablets Take 1 Tablet By Mouth Every Day In The Evening Makayla Morocho MD Hydrochlorothiazide2 5mg Tablets 1 by mouth every day 90tabs Aly Cameron M.D. Slvtdfca66zo Tablets 1 by mouth every day Aly Camerno M.D. Amlodipine Sqpudpqq00cf Tablets 1 by mouth every day Aly Cameron M.D. Pravastatin Ofmoms98wj Tablets 1 by mouth every day Aly Cameron M.D. Tamsulosin HCL0.4mg Capsules 1 cap by mouth every night 90caps Aly Cameron M.D. Trazodone [id number] Tablets 1 tab by mouth at bedtime as needed Aly Cameron M.D. Valacyclovir FAT503xm Tablets take 1 tablet by mouth daily as needed 90tabs Aly Cameron M.D. Sildenafil Vyhyrtx807kq Tablets take 1 tablet by mouth once [...] Appt Barry e Aly Cameron M.D. Created [address] [place] [address] Drive [address] [place] [phone] Aly Cameron M.D. Created [address] [place] [address] Drive [address] [place] [address] [phone]
== END 2025-04-06 14:29 | disposition home or self-care (01) ==
LOC: HO.HKAS 13:49
PROVIDERS: PCP Internal Medicine; Visit Provider Internal Medicine Nephrology
DX: I12.9 Hypertensive chronic kidney disease with stage 1 through stage 4 chronic kidney disease, or unspecified chronic kidney disease (principal); E11.22 Type 2 diabetes mellitus with diabetic chronic kidney disease; N18.31 Chronic kidney disease, stage 3a
CPT/HCPCS: 99214